=== PATIENT | female | born 1960 | race African-American/Black ===

== ENCOUNTER 2019-08-03 15:07 | Outpatient (CLI) | payer OTHER ==
--- NOTE | 2019-08-04 07:52 | MMO ---
Bilateral MAMMO Bilat Screen [facility]. CLINICAL HISTORY: Patient is 59 years old and is seen for screening. The patient has no family history of breast cancer. The patient has no personal history of cancer. VIEWS: The views performed were: bilateral craniocaudal and bilateral mediolateral oblique. This study has been interpreted with the assistance of computer-aided detection. MAMMOGRAM FINDINGS: There are scattered fibroglandular densities. There are no suspicious masses, suspicious calcifications, or new areas of architectural distortion. IMPRESSION: THERE IS NO MAMMOGRAPHIC EVIDENCE OF MALIGNANCY. A ROUTINE FOLLOW-UP MAMMOGRAM IN 1 YEAR IS RECOMMENDED. ACR BI-RADS Category 1 - Negative MAMMOGRAPHY NOTE: 1. A negative mammogram report should not delay a biopsy if a dominant of clinically suspicious mass is present. 2. Approximately 10% to 15% of breast cancers are not detected by mammography. 3. Adenosis and dense breasts may obscure an underlying neoplasm. Reported by: Andrea PETERSON Electonically Signed: [id number]
== END 2019-08-03 15:08 | disposition home or self-care (01) ==
LOC: BICMAMMO 15:07
PROVIDERS: ATTEND Physician Assistant
DX: Z12.31 Encounter for screening mammogram for malignant neoplasm of breast (principal)
CPT/HCPCS: 77067

== ENCOUNTER 2019-08-16 14:21 | Outpatient (CLI) | payer OTHER ==
--- NOTE | 2019-08-16 15:22 | MRI ---
MRI LUMBAR SPINE NONCONTRAST: DATE: 08/16/2019 HISTORY: 59-year-old female with lumbar radiculopathy and low back pain COMPARISON: None FINDINGS: For the purposes of this report, it will be assumed that there are 5 lumbar-type vertebrae. Vertebral body heights are maintained. No bone marrow signal abnormality. Mild to moderate disc space narrowing at T11-12 and T12-L1. Minima l disc space narrowing L3-4 and L5-S1. All of these levels have disc desiccation. The L1-2, L2-3, and L4-5 intervertebral discs have normal signal and height. There is no central spinal canal stenosi s or significant neural foraminal stenosis at any level. Conus medullaris terminates at L2. Cauda equina is arranged in a symmetrical, normal distribution throughout the thecal sac. No strategic foca l disc herniation that impinges on a nerve root at any level. At L3-4, there is bilateral severe facet DJD that causes a mild grade 1 anterolisthesis of L3 on L4. There is also severe bilateral face t DJD at L4-5, but without spondylolisthesis. There is a mild lateral curvature. Perivertebral spaces are unremarkable. IMPRESSION: 1) severe bilateral facet osteoarthrosis at L3-4 and L4-5. 2) mild grade 1 spondylolisthesis at L3-4 due to the severe facet osteoarthrosis at that level. 3) several levels of mild degenerative disc disease in the lower thoracic spine and lumbar spine. 4) no central spinal canal stenosis, neural foraminal stenosis, or nerve root impingement, at any lev el. 5) mild lateral curvature.
== END 2019-08-16 14:22 | disposition home or self-care (01) ==
LOC: BICMRI 14:21
PROVIDERS: ATTEND Nurse Practitioner Family
DX: M47.26 Other spondylosis with radiculopathy, lumbar region (principal); M43.16 Spondylolisthesis, lumbar region; M51.37 Other intervertebral disc degeneration, lumbosacral region; M51.34 Other intervertebral disc degeneration, thoracic region
CPT/HCPCS: 72148

== ENCOUNTER 2021-01-29 11:19 | Outpatient (CLI) | payer OTHER | END 2021-01-29 11:20 | disposition home or self-care (01) | LOC: BICMAMMO 11:19 | PROVIDERS: ATTEND Physician Assistant | DX: Z12.31 Encounter for screening mammogram for malignant neoplasm of breast (principal) | CPT/HCPCS: 77063; 77067 ==

== ENCOUNTER 2022-01-30 10:29 | Outpatient (CLI) | payer OTHER | END 2022-01-30 10:30 | disposition home or self-care (01) | LOC: BICMAMMO 10:29 | PROVIDERS: ATTEND Physician Assistant | DX: Z12.31 Encounter for screening mammogram for malignant neoplasm of breast (principal) | CPT/HCPCS: 77067 ==

== ENCOUNTER 2022-02-13 12:24 | Outpatient (CLI) | payer OTHER | END 2022-02-13 12:25 | disposition home or self-care (01) | LOC: ULT 12:24 | PROVIDERS: ATTEND Internal Medicine Interventional Cardiology | DX: R07.9 Chest pain, unspecified (principal); R06.02 Shortness of breath; I51.7 Cardiomegaly | CPT/HCPCS: 93306 ==

== ENCOUNTER 2022-03-05 14:30 | Outpatient (CLI) | payer OTHER | END 2022-03-05 14:31 | disposition home or self-care (01) | LOC: ULT 14:30 | PROVIDERS: ATTEND Internal Medicine Interventional Cardiology | DX: R07.9 Chest pain, unspecified (principal); R06.02 Shortness of breath; I65.23 Occlusion and stenosis of bilateral carotid arteries | CPT/HCPCS: 93880 ==

== ENCOUNTER 2022-05-10 14:34 | Observation (INO) | payer OTHER ==
[2022-05-10 15:32] LABS: #Eosinphils 0.1 thou/uL (0.0-0.7); #Lymphocytes 3.5 thou/uL (1.20-3.40); #Monocytes 0.6 thou/uL (0.11-0.59); #Neutrophils 6.3 thou/uL (1.40-6.50); %Basophils 0.3 % (0.0-1.0); %Lymphocytes 33.5 % (21.0-51.0); %Monocytes 5.7 % (0.0-10.0); %Neutrophils 59.4 % (42.0-75.0); Hemoglobin 15.6 g/dL (12.0-16.0); Mean Corpuscular HGB CONC 32.8 g/dL (32.0-36.0); Mean Corpuscular Hemoglobin 32.1 pg (27.0-31.0); Mean Corpuscular Volume 97.8 fl (78.0-98.0); Mean Platelet Volume 8.2 fL (7.4-10.4); Platelet Count 270 10x3/uL (130-400); RBC Distribution Width 13.1 % (11.5-14.5); Red Blood Cell (RBC) Count 4.85 mill/uL (4.20-5.40); White Blood Cell (WBC) Count 10.5 10x3/uL (4.8-10.8)
[2022-05-10 15:54] LABS: ALT (SGPT) 27 U/L (8-55); AST (SGOT) 28 U/L (5-34); Albumin 4.7 g/dL (3.4-4.8); Alkaline Phosphatase 75 U/L (40-110); Anion Gap 18 mmol/L (10-20); BUN (Urea Nitrogen) 35 mg/dL (9.8-20.1); Bilirubin, Total 0.3 mg/dL (0.2-1.2); Calc. Creatinine Clearance 0 mL/min (70-130); Calcium 10.7 mg/dL (7.8-10.44); Carbon Dioxide 23 mmol/L (23-31); Chloride 101 mmol/L (98-107); Estimated GFR 70; Globulin 4.4 g/dL (2.4-3.5); Glucose 116 mg/dL (80-115); Potassium 3.5 mmol/L (3.5-5.1); Protein, Total 9.1 g/dL (5.8-8.1); Sodium 138 mmol/L (136-145)
[2022-05-10] MEDS ORDERED: Aspirin Chewable 81 MG TAB ONE (17:09)
[2022-05-10] MEDS ORDERED: Nitroglycerin 2% Ointment 1 INCH/1 GM Packet ONE (17:21)
[2022-05-10] MEDS ORDERED: Acetaminophen 325 MG TAB PO PRN (18:34)
[2022-05-10] MEDS ORDERED: Dextrose 50% Abboject 50 ML SYRINGE SLOW IVP PRN (18:34)
[2022-05-10] MEDS ORDERED: Ondansetron ODT 4 MG TAB PO PRN (18:34)
[2022-05-10] MEDS ORDERED: HumaLOG 300 UNITS/3 ML VIAL SC PRN ×2 (18:34)
[2022-05-10] MEDS ORDERED: Dextrose 5% in Water 1,000 ML IV PRN (18:34)
[2022-05-10] MEDS ORDERED: Ondansetron PF 4 MG/2 ML Vial IVP PRN (18:34)
[2022-05-10] MEDS ORDERED: hydrOXYzine Pamoate 25 mg Capsule PO SCH (18:45)
[2022-05-10 20:52] LABS: Troponin I Less than 0.010 ng/mL (< 0.028)
[2022-05-10] MEDS ORDERED: ALPRAZolam 0.5 MG TAB PO SCH (21:45)
[2022-05-10] MEDS: Sodium Chloride 0.9% 1,000 ML IV SCH (21:50)
[2022-05-10] MEDS: Atorvastatin Calcium 40 MG TAB PO SCH (21:53)
[2022-05-10 22:26] LABS: SARS-CoV-2 NAA Rapid Test Not Detected (NotDetected)
[2022-05-10 23:13] LABS: Amphetamine Not Detected (NotDetected); Barbiturates Screen Not Detected (NotDetected); Benzodiazepine Screen Detected (NotDetected); Cocaine Metabolite Screen Not Detected (NotDetected); Methadone Not Detected (NotDetected); Methamphetamine Not Detected (NotDetected); Opiate Screen Not Detected (NotDetected); Oxycodone Screen Not Detected (NotDetected); Phencyclidine (PCP) Not Detected (NotDetected); THC/Cannabinoid Screen Detected (NotDetected); Tricyclic Screen Not Detected (NotDetected)
[2022-05-11 00:10] LABS: Troponin I Less than 0.010 ng/mL (< 0.028)
[2022-05-11 01:00] VITALS: BMI 25.2
[2022-05-11 05:27] LABS: Anion Gap 12 mmol/L (10-20); BUN (Urea Nitrogen) 19 mg/dL (9.8-20.1); Calc. Creatinine Clearance 93 mL/min (70-130); Calcium 9.2 mg/dL (7.8-10.44); Carbon Dioxide 22 mmol/L (23-31); Cardiac Risk 3.2 (Less than 4.5); Chloride 105 mmol/L (98-107); Cholesterol 135 mg/dl (< 200 Desired); Estimated GFR 97; Glucose 105 mg/dL (80-115); HDL Cholesterol 42 mg/dL (>60 Neg Risk); LDL Cholesterol, Calculated 77 mg/dL; Potassium 3.2 mmol/L (3.5-5.1); Sodium 136 mmol/L (136-145); Triglycerides 82 mg/dL (Less than 150)
[2022-05-11 05:50] LABS: #Eosinphils 0.1 thou/uL (0.0-0.7); #Lymphocytes 2.7 thou/uL (1.20-3.40); #Monocytes 0.6 thou/uL (0.11-0.59); #Neutrophils 4.7 thou/uL (1.40-6.50); %Basophils 0.3 % (0.0-1.0); %Eosinophils 1.2 % (0.0-10.0); %Lymphocytes 33.9 % (21.0-51.0); %Neutrophils 57.6 % (42.0-75.0); Hemoglobin 13.2 g/dL (12.0-16.0); Mean Corpuscular HGB CONC 33.7 g/dL (32.0-36.0); Mean Corpuscular Hemoglobin 32.8 pg (27.0-31.0); Mean Corpuscular Volume 97.4 fl (78.0-98.0); Mean Platelet Volume 7.9 fL (7.4-10.4); Platelet Count 254 10x3/uL (130-400); RBC Distribution Width 12.8 % (11.5-14.5); Red Blood Cell (RBC) Count 4.01 mill/uL (4.20-5.40); White Blood Cell (WBC) Count 8.1 10x3/uL (4.8-10.8)
[2022-05-11] MEDS ORDERED: ALPRAZolam 0.5 MG TAB PO SCH (08:15)
[2022-05-11] MEDS ORDERED: Potassium Chloride 20 MEQ TAB PO SCH (08:30)
[2022-05-11] MEDS ORDERED: Aspirin Chewable 81 MG TAB PO SCH (09:00)
[2022-05-11] MEDS ORDERED: ADENOSINE 60 MG/20 ML VIAL ONE (09:02)
[2022-05-11] MEDS ORDERED: hydrALAZINE 20 MG/ML VIAL SLOW IVP PRN (14:38)
[2022-05-11] MEDS ORDERED: Hydrochlorothiazide 25 MG TAB PO SCH (14:45)
[2022-05-11] MEDS ORDERED: NIFEdipine XL 30 MG TAB PO SCH (15:00)
[2022-05-11] MEDS: glipiZIDE 5 MG TAB PO SCH (16:31)
[2022-05-11] MEDS: Sodium Chloride 0.9% 1,000 ML IV SCH ×2 (18:12→22:17)
[2022-05-11] MEDS: Atorvastatin Calcium 40 MG TAB PO SCH (20:31)
[2022-05-11] MEDS: Baclofen 10 MG TAB PO SCH (20:32)
[2022-05-11] MEDS: NIFEdipine XL 30 MG TAB PO SCH (20:32)
[2022-05-11] MEDS: ALPRAZolam 0.5 MG TAB PO SCH (20:32)
[2022-05-11] MEDS ORDERED: Gabapentin 100 MG CAP PO SCH (21:00)
[2022-05-11] MEDS ORDERED: Gabapentin 300 MG CAP PO SCH (21:00)
[2022-05-11] MEDS ORDERED: Atorvastatin Calcium 40 MG TAB PO SCH (21:00)
[2022-05-12 03:22] VITALS: TEMP 98.1
[2022-05-12 05:07] LABS: Hemoglobin A1c 5.5 % (4.0-6.0)
[2022-05-12] MEDS: ALPRAZolam 0.5 MG TAB PO SCH (08:48)
[2022-05-12] MEDS: Baclofen 10 MG TAB PO SCH (08:49)
[2022-05-12] MEDS: glipiZIDE 5 MG TAB PO SCH (08:49)
[2022-05-12] MEDS: NIFEdipine XL 30 MG TAB PO SCH (08:49)
[2022-05-12] MEDS ORDERED: Hydrochlorothiazide 25 MG TAB PO SCH (09:00)
[2022-05-12] MEDS ORDERED: Magnesium Oxide 400 MG TAB PO SCH (09:00)
[2022-05-12] MEDS ORDERED: NIFEdipine XL 30 MG TAB PO SCH (09:00)
[2022-05-12] MEDS ORDERED: Aspirin 81 mg Enteric Coated Tablet PO SCH (09:00)
[2022-05-12 11:48] VITALS: BP 155/76
== END 2022-05-12 13:25 | disposition home or self-care (01) ==
LOC: ERS 14:34 → 2SW 17:25
PROVIDERS: ADMIT Hospitalist; ATTEND Hospitalist
DX: R07.89 Other chest pain (principal); R06.09 Other forms of dyspnea; R20.2 Paresthesia of skin; I11.9 Hypertensive heart disease without heart failure; E11.9 Type 2 diabetes mellitus without complications; I69.354 Hemiplegia and hemiparesis following cerebral infarction affecting left non-dominant side; E78.5 Hyperlipidemia, unspecified; E87.6 Hypokalemia; Z79.82 Long term (current) use of aspirin; Z79.84 Long term (current) use of oral hypoglycemic drugs; Z79.899 Other long term (current) drug therapy; Z20.822 Contact with and (suspected) exposure to COVID-19
CPT/HCPCS: 36415; 36416; 70450; 70551; 71045; 71275; 72141; 78452; 80048; 80053; 80061; 80306; 83036; 83880; 84443; 84484; 85025; 85379; 93005; 93017; 94760; 96372; 96374; A9500; G0378; J0153; J0360; J1650; J7050; U0002

== ENCOUNTER 2023-05-25 13:36 | Outpatient (CLI) | payer OTHER | END 2023-05-25 13:37 | disposition home or self-care (01) | LOC: BICMAMMO 13:36 | PROVIDERS: ATTEND Nurse Practitioner Family | DX: Z12.31 Encounter for screening mammogram for malignant neoplasm of breast (principal); Z13.820 Encounter for screening for osteoporosis; Z78.0 Asymptomatic menopausal state; M85.88 Other specified disorders of bone density and structure, other site | CPT/HCPCS: 77067; 77080 ==

== ENCOUNTER 2024-05-27 11:00 | Outpatient (CLI) | payer OTHER, MEDICAID | END 2024-05-27 11:01 | disposition home or self-care (01) | LOC: BICMAMMO 11:00 | PROVIDERS: ATTEND Nurse Practitioner Family | DX: Z12.31 Encounter for screening mammogram for malignant neoplasm of breast (principal) | CPT/HCPCS: 77063; 77067 ==